=== PATIENT | male | born 1980 | race Caucasian/White ===

== ENCOUNTER 2020-05-23 19:57 | Inpatient (IN) | payer MEDICAID, OTHER ==
[~2020-05-23] VITALS: Ht 177.8 cm; Wt 108.0 kg
[~2020-05-23 19:57] MED LIST: ALBU17AE27 IH
[2020-05-23 21:00] LABS: GLUCOSE,POINT OF CARE 100 MG/DL (70-110)
[2020-05-23 21:16] LABS: BASOPHILS % (AUTO) 0.7 % (0.0-2.0); EOSINOPHILS % (AUTO) 0.7 % (1.0-6.0); HEMATOCRIT 46.7 % (41-53); HEMOGLOBIN 15.6 g/dL (13.5-17.5); LYMPHOCYTES % (AUTO) 20.1 % (22.0-44.0); MEAN CORPUSCULAR HGB CONC 33.3 G/dL (31.0-37.0); MEAN CORPUSCULAR VOLUME 90 fL (80-100); MONOCYTES # (AUTO) 0.9 K/uL (0.1-1.0); NEUTROPHILS # (AUTO) 6.9 K/uL (1.8-7.7); NEUTROPHILS % (AUTO) 69.5 % (40.0-70.0); PLATELET COUNT (AUTO) 305 K/uL (150-450); RED BLOOD CELL COUNT(AUTO) 5.19 MIL/uL (4.50-5.90); RED CELL DISTRIBUTION WIDTH 14.1 % (11.5-14.5)
[2020-05-23 21:30] LABS: ACETAMINOPHEN < 2 mcg/mL (10-30); ALANINE AMINOTRANSFERASE 43 U/L (12-78); ALBUMIN 3.9 g/dL (3.4-5.0); ALKALINE PHOSPHATASE 91 U/L (46-116); ANION GAP 15 mmol/L (8-16); ASPARTATE AMINOTRANSFERASE 19 U/L (15-37); BILIRUBIN,TOTAL 0.3 mg/dL (0.1-1.0); CALCIUM, TOTAL 8.9 mg/dL (8.8-10.5); CARBON DIOXIDE 23 mmol/L (22-29); CHLORIDE 106 mmol/L (98-107); CREATININE 1.44 mg/dL (0.60-1.30); GLOMERULAR FILTR. RATE CALC 55 mL/min (>60); GLUCOSE,RANDOM 104 mg/dL (70-110); SODIUM SERUM 144 mmol/L (136-145); TOTAL PROTEIN, SERUM 7.4 g/dL (6.4-8.2); UREA NITROGEN, BLOOD 8 mg/dL (7-18)
[2020-05-23 21:38] LABS: SALICYLATE < 2.8 mg/dL (2.8-20.0)
[2020-05-23 23:42] LABS: APPEARANCE,URINE CLEAR (CLEAR); BILIRUBIN,URINE NEGATIVE (NEGATIVE); GLUCOSE, URINE (UA) NEGATIVE (NEGATIVE); KETONES,URINE NEGATIVE (NEGATIVE); LEUKOCYTE ESTERASE ,URINE NEGATIVE (NEGATIVE); NITRATE,URINE NEGATIVE (NEGATIVE); OCCULT BLOOD,URINE NEGATIVE (NEGATIVE); PROTEIN,URINE NEGATIVE (NEGATIVE); UROBILINOGEN,URINE 0.2 mg/dL (<=1.0)
[2020-05-23 23:47] LABS: AMPHET/METH SCREEN,URINE NEGATIVE (NEGATIVE); BARBITURATE SCREEN, URINE NEGATIVE (NEGATIVE); BENZODIAZEPINES SCREEN,URINE NEGATIVE (NEGATIVE); CANNABINOID SCREEN,URINE POSITIVE (NEGATIVE); COCAINE SCREEN,URINE POSITIVE (NEGATIVE); METHADONE SCREEN, URINE NEGATIVE (NEGATIVE); OPIATE SCREEN,URINE NEGATIVE (NEGATIVE)
[2020-05-23 23:51] LABS: PHENCYCLIDINE SCREEN,URINE NEGATIVE (NEGATIVE)
[2020-05-23 23:53] LABS: BACTERIA,URINE None Seen /HPF (None Seen); RBC,URINE None Seen /HPF (0-2); WBC,URINE None Seen /HPF (0-5)
[2020-05-23 23:54] LABS: SQUAMOUS EPITHELIAL CELL,UR Rare /LPF (None Seen)
[2020-05-24] MEDS ORDERED: POTASSIUM CHLORIDE 20 MEQ ER TABLET PO ONE
[2020-05-24 02:46] LABS: CHOL/HDL RATIO 4.7 (4.2-7.3); CHOLESTEROL 220 mg/dL (131-200); HDL CHOLESTEROL 47 mg/dL (40-60); LDL CHOL (CALC.) 147 mg/dL (0-130); TRIGLYCERIDES 129 mg/dL (15-150)
[2020-05-24] MEDS ORDERED: MAG HYDROX/AL HYDROX/SIMETH ES 30 ML SUSPENSION UDCUP PO PRN (04:00)
[2020-05-24] MEDS ORDERED: NICOTINE 14 MG/24 HOUR PATCH TD PRN (04:00)
[2020-05-24] MEDS ORDERED: PETROLATUM,WHITE 28 GM JELLY TP PRN (04:00)
[2020-05-24] MEDS ORDERED: CloNIDine HCL 0.1 MG TABLET PO PRN (04:00)
[2020-05-24] MEDS ORDERED: IBUPROFEN 400 MG TABLET PO PRN (04:00)
[2020-05-24] MEDS ORDERED: DOCUSATE SODIUM 100 MG CAPSULE PO PRN (04:00)
[2020-05-24] MEDS ORDERED: MAGNESIUM HYDROXIDE SUSPENSION 30 ML UDCUP PO PRN (04:00)
[2020-05-24] MEDS ORDERED: GuaiFENesin/D-METHORPHAN [SUGAR-FREE] 200-20MG/10 ML SYRUP UDCUP PO PRN (04:00)
[2020-05-24] MEDS ORDERED: ALBUTEROL SULFATE HFA 90 MCG/PUFF 8 GM INHALER IH PRN (04:00)
[2020-05-24] MEDS ORDERED: LOPERAMIDE HCL 2 MG CAPSULE PO PRN (04:00)
[2020-05-24] MEDS ORDERED: ONDANSETRON HCL 4 MG TABLET PO PRN (04:00)
[2020-05-24] MEDS ORDERED: ACETAMINOPHEN 325 MG TABLET PO PRN (04:00)
[2020-05-24] MEDS ORDERED: ONDANSETRON HCL 4 MG/2 ML VIAL IVP ONE (04:45)
[2020-05-24] MEDS: LORazepam 2 MG TABLET PO PRN (11:41)
[2020-05-24] MEDS: HALOPERIDOL 5 MG TABLET PO PRN (11:41)
[2020-05-24 11:48] VITALS: BP 141/102
[2020-05-24 12:11] VITALS: BP 141/102
[2020-05-24] MEDS ORDERED: PNEUMOCOCCAL VACCINE POLYVALENT 0.5 ML VIAL [PPSV23] IM ONE (12:15)
[2020-05-24] MEDS: BuPROPion HCL XL 150 MG ER TABLET PO SCH (14:44)
[2020-05-24] MEDS: OLANZapine 5 MG TABLET PO SCH (16:39)
[2020-05-24] MEDS: ZOLPIDEM TARTRATE 10 MG TABLET PO PRN (22:26)
[2020-05-25 08:00] VITALS: BP 136/74
[2020-05-25] MEDS: BuPROPion HCL XL 150 MG ER TABLET PO SCH (08:21)
[2020-05-25] MEDS: HALOPERIDOL 5 MG TABLET PO PRN (08:21)
[2020-05-25] MEDS: LORazepam 2 MG TABLET PO PRN (08:21)
[2020-05-25] MEDS: OLANZapine 5 MG TABLET PO SCH ×2 (08:21→16:33)
[2020-05-25 16:56] VITALS: BP 157/92
[2020-05-26] MEDS: OLANZapine 5 MG TABLET PO SCH ×2 (08:12→16:23)
[2020-05-26] MEDS: BuPROPion HCL XL 150 MG ER TABLET PO SCH (08:12)
[2020-05-26] MEDS: ZOLPIDEM TARTRATE 10 MG TABLET PO PRN (21:49)
[2020-05-27] MEDS: BuPROPion HCL XL 150 MG ER TABLET PO SCH (08:44)
[2020-05-27] MEDS: OLANZapine 5 MG TABLET PO SCH ×2 (08:44→16:04)
[2020-05-27 08:56] VITALS: BP 108/61
[2020-05-27] MEDS ORDERED: BuPROPion HCL XL 150 MG ER TABLET PO ONE (11:45)
[2020-05-27] MEDS: ZOLPIDEM TARTRATE 10 MG TABLET PO PRN (20:57)
[2020-05-28] MEDS: OLANZapine 5 MG TABLET PO SCH ×2 (08:41→16:07)
[2020-05-28] MEDS ORDERED: BuPROPion HCL XL 150 MG ER TABLET PO SCH (09:00)
[2020-05-28] MEDS ORDERED: OLAN5TAB2 PO (12:01)
[2020-05-28] MEDS ORDERED: BUPR100 PO (12:01)
[2020-05-28 16:00] VITALS: BP 110/70
== END 2020-05-28 19:20 | disposition home or self-care (01) | DRG 885 ==
LOC: EMS 19:59 → 3EC 05-24 10:35
PROVIDERS: ADMIT Psychiatry & Neurology Psychiatry; ATTEND Psychiatry & Neurology Psychiatry
DX: F25.0 Schizoaffective disorder, bipolar type (principal); N17.9 Acute kidney failure, unspecified; E78.5 Hyperlipidemia, unspecified; E87.6 Hypokalemia; F10.129 Alcohol abuse with intoxication, unspecified; J45.909 Unspecified asthma, uncomplicated; Z78.1 Physical restraint status; Z28.21 Immunization not carried out because of patient refusal
CPT/HCPCS: 84132; 90732; 93005; 99291; G0480; G0481; J2405

== ENCOUNTER 2022-09-23 19:27 | Emergency (ER) | payer MEDICAID, OTHER ==
[~2022-09-23 19:27] MED LIST changes: -ALBU17AE27 IH; +BUPR-345 PO; +OLAN5TAB52 PO
== END 2022-09-23 21:13 | disposition left against medical advice (07) ==
LOC: EMS 19:29
DX: Z53.21 Procedure and treatment not carried out due to patient leaving prior to being seen by health care provider (principal)